=== PATIENT | male | born 1960 | race Caucasian/White ===

== ENCOUNTER 2024-10-15 06:25 | Day surgery (SDC) | payer OTHER, SELFPAY ==
[2024-10-15 09:39] VITALS: BMI 35.5
[2024-10-15 09:41] VITALS: BP 139/84
[2024-10-15 12:51] VITALS: BP 114/79
[2024-10-15 13:00] VITALS: BP 121/83
[2024-10-15 13:15] VITALS: BP 132/85
== END 2024-10-15 13:28 | disposition home or self-care (01) ==
LOC: SDS 06:25
PROVIDERS: ATTENDING PHYSICIAN Internal Medicine Gastroenterology
DX: Z12.11 Encounter for screening for malignant neoplasm of colon (principal); D12.2 Benign neoplasm of ascending colon; D12.4 Benign neoplasm of descending colon; K63.89 Other specified diseases of intestine; K64.0 First degree hemorrhoids; K22.70 Barrett's esophagus without dysplasia; Z86.0100 Personal history of colon polyps, unspecified; Z79.01 Long term (current) use of anticoagulants
CPT/HCPCS: 45385; 45380; 43239; 88305